=== PATIENT | female | born 1945 | race African-American/Black ===

== ENCOUNTER 2018-07-04 14:30 | Inpatient (IN) ==
[2018-07-04] MEDS ORDERED: ACETAMINOPHEN 325 MG TABLET PO PRN (20:29)
[2018-07-04] MEDS ORDERED: ZALEPLON 5 MG CAPSULE PO PRN (20:29)
[2018-07-04] MEDS ORDERED: ONDANSETRON 4 MG/2 ML VIAL IV PRN (20:29)
[2018-07-04] MEDS ORDERED: DOCUSATE SODIUM 100 MG CAPSULE PO PRN (20:29)
[2018-07-04] MEDS ORDERED: ALBUTEROL/IPRATROPIUM 3 ML NEB RESP TX PRN (20:33)
[2018-07-04 21:22] LABS: Basophils % 0.3 % (0.0-0.8); Eosinophils # 0.1 10*3/uL (0.0-0.87); Eosinophils % 1.1 % (0.00-10.9); Hemoglobin 8.5 GM/DL (12.0-16.0); Immature Granulocytes % 0.3 %; Immature Granulocytes Absolute 0.03 #; Lymphocytes # 0.6 10*3/uL (1.4-4.0); Lymphocytes % 5.7 % (21.3-54.2); Mean Corpuscular HGB Conc 29.3 GM/DL (32-36); Mean Corpuscular Volume 80.3 FL (87-102); Mean Platelet Volume 11.6 FL (9.6-12.0); Monocytes % 8.6 % (1.7-12.7); Platelet Count 193 T/CUMM (130-400); Red Blood Count 3.61 MC/CUMM (3.8-5.5); Red Cell Distribution Width 15.8 % (9.3-17.3); White Blood Count 9.7 T/CUMM (4-12)
[2018-07-04 21:38] LABS: CKMB % 1.8 %; Troponin I 0.066 NG/ML (0.00-0.045)
[2018-07-04 21:44] LABS: Albumin 3.7 G/DL (3.4-5.0); Bilirubin,Total 0.5 MG/DL (0.2-1.0); Calcium 8.6 MG/DL (8.5-10.1); Osmolality,Calculated 305.7 MOS/KG (273-304); Thyroid Stimulating Hormone 2.58 uIU/ml (0.358-3.74)
[2018-07-04] MEDS: ENOXAPARIN 80 MG/0.8 ML SYRINGE SUBCUT SCH (22:55)
[2018-07-04] MEDS: CARVEDILOL 25 MG TABLET PO SCH (22:55)
[2018-07-04] MEDS: ATORVASTATIN 20 MG TABLET PO SCH (22:55)
[2018-07-04] MEDS: SACUBITRIL/VALSARTAN 49-51 MG TABLET PO SCH (22:55)
[2018-07-04] MEDS: methylPREDNISolone SOD SUC 40 MG/1 ML VIAL IV SCH (22:56)
[2018-07-04] MEDS: ALBUTEROL/IPRATROPIUM 3 ML NEB RESP TX SCH (23:08)
[2018-07-05] MEDS: ALBUTEROL/IPRATROPIUM 3 ML NEB RESP TX SCH ×5 (03:11→20:00)
[2018-07-05] MEDS: methylPREDNISolone SOD SUC 40 MG/1 ML VIAL IV SCH ×4 (03:45→22:03)
[2018-07-05 06:22] LABS: Risk Ratio 1.93; VLDL CHOLESTEROL 7.4 MG/DL
[2018-07-05 06:29] LABS: Troponin I 0.103 NG/ML (0.00-0.045)
[2018-07-05 06:56] LABS: Amorphous Crystals,Urine Occasional /HPF (Few); Apearance,Urine CLOUDY (Clear); Bacteria,Urine Many /HPF (Few); Bilirubin,Urine Negative (Negative); Blood, Urine Small mg/dL (Negative); Glucose,Urine (UA) Negative (Negative); Hyaline Casts,Urine 6 /LPF (0-3); Ketones,Urine Negative (Negative); Nitrite,Urine Negative (Negative); Protein,Urine 30 MG/DL; RBC,Urine 2 /HPF (0-4); Squamous Epithelial Cell,Urine Moderate /HPF (0-10); Urine Color Yellow (Yellow); Urine Urobilinogen < 2.0 EU/DL (0.2-1.0); WBC,Urine 6 /HPF (0-6)
[2018-07-05] MEDS ORDERED: DEXTROSE 50% 25 GM/50 ML SYRINGE IV PRN (08:45)
[2018-07-05] MEDS ORDERED: GLUCAGON 1 MG VIAL IM PRN (08:45)
[2018-07-05] MEDS ORDERED: LEVOFLOXACIN INJ 500 MG in PREMIX 1 EACH IV ONE (09:00)
[2018-07-05] MEDS: CARVEDILOL 25 MG TABLET PO SCH ×2 (09:51→16:22)
[2018-07-05] MEDS: ENOXAPARIN 80 MG/0.8 ML SYRINGE SUBCUT SCH ×2 (09:51→22:04)
[2018-07-05] MEDS: SACUBITRIL/VALSARTAN 49-51 MG TABLET PO SCH ×2 (09:51→22:03)
[2018-07-05] MEDS: ASPIRIN EC 81 MG TABLET PO SCH (09:51)
[2018-07-05] MEDS: PANTOPRAZOLE 40 MG TABLET PO SCH (09:51)
[2018-07-05] MEDS: FERROUS SULFATE 325 MG TABLET PO SCH (09:51)
[2018-07-05] MEDS: FUROSEMIDE 40 MG/4 ML VIAL IV SCH ×2 (09:52→16:21)
[2018-07-05] MEDS: INSULIN REGULAR 100 UNIT/ML SUBCUT SCH ×2 (13:17→18:43)
[2018-07-05] MEDS ORDERED: DEXTROSE 50% 25 GM/50 ML VIAL IV PRN ×2 (13:30→21:31)
[2018-07-05] MEDS: ATORVASTATIN 20 MG TABLET PO SCH (22:04)
[2018-07-06] MEDS: INSULIN REGULAR 100 UNIT/ML SUBCUT SCH ×6 (01:50→23:58)
[2018-07-06] MEDS: ALBUTEROL/IPRATROPIUM 3 ML NEB RESP TX SCH ×7 (03:50→23:05)
[2018-07-06] MEDS: methylPREDNISolone SOD SUC 40 MG/1 ML VIAL IV SCH ×4 (04:23→20:43)
[2018-07-06 08:39] LABS: Calcium 8.7 MG/DL (8.5-10.1); Osmolality,Calculated 306.7 MOS/KG (273-304)
[2018-07-06] MEDS: FUROSEMIDE 40 MG/4 ML VIAL IV SCH ×2 (08:49→16:40)
[2018-07-06] MEDS: ENOXAPARIN 80 MG/0.8 ML SYRINGE SUBCUT SCH (08:49)
[2018-07-06] MEDS: LEVOFLOXACIN INJ 250 MG in PREMIX 1 EACH IV SCH (08:50)
[2018-07-06] MEDS: FERROUS SULFATE 325 MG TABLET PO SCH (08:51)
[2018-07-06] MEDS: ASPIRIN EC 81 MG TABLET PO SCH (08:51)
[2018-07-06] MEDS: hydrALAZINE 10 MG TABLET PO SCH ×3 (08:51→20:42)
[2018-07-06] MEDS: ISOSORBIDE DINITRATE 20 MG TABLET PO SCH ×3 (08:51→20:43)
[2018-07-06] MEDS: SACUBITRIL/VALSARTAN 49-51 MG TABLET PO SCH ×2 (08:51→20:42)
[2018-07-06] MEDS: PANTOPRAZOLE 40 MG TABLET PO SCH (08:51)
[2018-07-06] MEDS: CARVEDILOL 25 MG TABLET PO SCH ×2 (08:51→16:40)
[2018-07-06 12:30] LABS: CKMB % 2.4 %
[2018-07-06 12:32] LABS: % Iron Saturation 21.3 % (18-50)
[2018-07-06 12:33] LABS: Troponin I 6.18 NG/ML (0.00-0.045)
[2018-07-06] MEDS: ATORVASTATIN 20 MG TABLET PO SCH (20:42)
[2018-07-07] MEDS: ALBUTEROL/IPRATROPIUM 3 ML NEB RESP TX SCH ×5 (03:14→20:01)
[2018-07-07] MEDS: methylPREDNISolone SOD SUC 40 MG/1 ML VIAL IV SCH ×4 (03:52→22:27)
[2018-07-07] MEDS: INSULIN REGULAR 100 UNIT/ML SUBCUT SCH ×3 (05:12→18:13)
[2018-07-07 05:32] LABS: Basophils % 0.1 % (0.0-0.8); Hematocrit 25.7 VOL% (35.7-47.0); Hemoglobin 7.7 GM/DL (12.0-16.0); Immature Granulocytes % 1.1 %; Immature Granulocytes Absolute 0.15 #; Lymphocytes # 0.3 10*3/uL (1.4-4.0); Lymphocytes % 2.4 % (21.3-54.2); Mean Corpuscular Volume 78.1 FL (87-102); Monocytes % 4.5 % (1.7-12.7); NRBC # 0.02 10*3/uL; Neutrophils % 91.9 % (38.7-73.9); Platelet Count 193 T/CUMM (130-400); Red Blood Count 3.29 MC/CUMM (3.8-5.5); Red Cell Distribution Width 15.4 % (9.3-17.3); White Blood Count 13.9 T/CUMM (4-12)
[2018-07-07 05:54] LABS: Calcium 8.4 MG/DL (8.5-10.1); Osmolality,Calculated 312.8 MOS/KG (273-304)
[2018-07-07 05:57] LABS: Lymphocytes 3 % (20-55); Segmented Neutrophils 93 % (50-85); Total Cells Counted 100
[2018-07-07 05:58] LABS: Acanthocytes Few; Anisocytosis 2+; Hypochromasia 1+; Macrocytosis Slight; Microcytosis 1+; Ovalocytes 1+; Polychromasia Slight; Stomatocytes Slight; Target Cells Slight
[2018-07-07 05:59] LABS: Platelet Estimate Adequate
[2018-07-07] MEDS: FUROSEMIDE 40 MG/4 ML VIAL IV SCH (09:13)
[2018-07-07] MEDS: ASPIRIN EC 81 MG TABLET PO SCH (09:15)
[2018-07-07] MEDS: LEVOFLOXACIN INJ 250 MG in PREMIX 1 EACH IV SCH (09:15)
[2018-07-07] MEDS: FERROUS SULFATE 325 MG TABLET PO SCH (09:15)
[2018-07-07] MEDS: SACUBITRIL/VALSARTAN 49-51 MG TABLET PO SCH (09:15)
[2018-07-07] MEDS: CARVEDILOL 25 MG TABLET PO SCH ×2 (09:15→16:26)
[2018-07-07] MEDS: ISOSORBIDE DINITRATE 20 MG TABLET PO SCH ×3 (09:15→22:25)
[2018-07-07] MEDS: hydrALAZINE 10 MG TABLET PO SCH ×3 (09:16→22:25)
[2018-07-07] MEDS: PANTOPRAZOLE 40 MG TABLET PO SCH (09:16)
[2018-07-07] MEDS: ENOXAPARIN 30 MG/0.3 ML SYRINGE SUBCUT SCH (09:19)
[2018-07-07] MEDS ORDERED: SODIUM CHLORIDE 0.9% 1,000 ML IV PRN ×2 (12:39→15:04)
[2018-07-07] MEDS ORDERED: FUROSEMIDE 40 MG/4 ML VIAL IV ONE ×2 (12:42→20:30)
[2018-07-07 13:03] LABS: % Iron Saturation 27.6 % (18-50); Ferritin 123.7 ng/ml (8-252)
[2018-07-07] MEDS: ATORVASTATIN 20 MG TABLET PO SCH (22:25)
[2018-07-08] MEDS: INSULIN REGULAR 100 UNIT/ML SUBCUT SCH ×4 (00:02→18:06)
[2018-07-08] MEDS: ALBUTEROL/IPRATROPIUM 3 ML NEB RESP TX SCH ×7 (00:15→23:22)
[2018-07-08] MEDS: methylPREDNISolone SOD SUC 40 MG/1 ML VIAL IV SCH ×4 (04:02→22:36)
[2018-07-08 04:58] LABS: Basophils % 0.1 % (0.0-0.8); Hemoglobin 10.7 GM/DL (12.0-16.0); Immature Granulocytes % 1.1 %; Immature Granulocytes Absolute 0.13 #; Lymphocytes # 0.3 10*3/uL (1.4-4.0); Lymphocytes % 2.9 % (21.3-54.2); Mean Corpuscular HGB Conc 31.5 GM/DL (32-36); Mean Corpuscular Volume 79.1 FL (87-102); Mean Platelet Volume 12.7 FL (9.6-12.0); Monocytes % 3.1 % (1.7-12.7); NRBC # 0.02 10*3/uL; Neutrophils % 92.8 % (38.7-73.9); Platelet Count 200 T/CUMM (130-400); White Blood Count 11.9 T/CUMM (4-12)
[2018-07-08 05:18] LABS: Calcium 8.7 MG/DL (8.5-10.1); Osmolality,Calculated 307.1 MOS/KG (273-304)
[2018-07-08 06:18] LABS: Band Neutrophils 2 % (0-10); Lymphocytes 3 % (20-55); Myelocytes 1 %; Segmented Neutrophils 92 % (50-85); Total Cells Counted 100
[2018-07-08 06:19] LABS: Anisocytosis 1+; Ovalocytes 1+; Platelet Estimate Adequate
[2018-07-08] MEDS: ENOXAPARIN 30 MG/0.3 ML SYRINGE SUBCUT SCH (09:02)
[2018-07-08] MEDS: ASPIRIN EC 81 MG TABLET PO SCH (09:03)
[2018-07-08] MEDS: FERROUS SULFATE 325 MG TABLET PO SCH (09:03)
[2018-07-08] MEDS: PANTOPRAZOLE 40 MG TABLET PO SCH (09:03)
[2018-07-08] MEDS: LEVOFLOXACIN 250 MG TABLET PO SCH (09:03)
[2018-07-08] MEDS: ISOSORBIDE DINITRATE 20 MG TABLET PO SCH ×3 (09:03→22:36)
[2018-07-08] MEDS: hydrALAZINE 10 MG TABLET PO SCH ×3 (09:03→22:36)
[2018-07-08] MEDS: CARVEDILOL 25 MG TABLET PO SCH ×2 (09:03→16:16)
[2018-07-08] MEDS: ATORVASTATIN 20 MG TABLET PO SCH (22:36)
[2018-07-09] MEDS: INSULIN REGULAR 100 UNIT/ML SUBCUT SCH ×3 (01:05→14:15)
[2018-07-09] MEDS: ALBUTEROL/IPRATROPIUM 3 ML NEB RESP TX SCH ×3 (02:27→11:22)
[2018-07-09] MEDS: methylPREDNISolone SOD SUC 40 MG/1 ML VIAL IV SCH ×2 (03:54→10:09)
[2018-07-09 04:45] LABS: Basophils % 0.1 % (0.0-0.8); Hemoglobin 11.6 GM/DL (12.0-16.0); Immature Granulocytes % 1.1 %; Immature Granulocytes Absolute 0.14 #; Lymphocytes # 0.3 10*3/uL (1.4-4.0); Lymphocytes % 2.7 % (21.3-54.2); Mean Corpuscular HGB Conc 31.4 GM/DL (32-36); Mean Corpuscular Volume 79.4 FL (87-102); Mean Platelet Volume 12.5 FL (9.6-12.0); Monocytes % 4.9 % (1.7-12.7); NRBC # 0.02 10*3/uL; Neutrophils % 91.2 % (38.7-73.9); Platelet Count 201 T/CUMM (130-400); Red Blood Count 4.66 MC/CUMM (3.8-5.5); White Blood Count 12.4 T/CUMM (4-12)
[2018-07-09 05:14] LABS: Calcium 8.4 MG/DL (8.5-10.1); Calcium 8.5 MG/DL (8.5-10.1); Osmolality,Calculated 314.8 MOS/KG (273-304)
[2018-07-09 06:19] LABS: Hypochromasia 1+; Lymphocytes 1 % (20-55); Ovalocytes Slight; Platelet Estimate Adequate; Segmented Neutrophils 97 % (50-85); Total Cells Counted 100
[2018-07-09] MEDS: ENOXAPARIN 30 MG/0.3 ML SYRINGE SUBCUT SCH (10:03)
[2018-07-09] MEDS: hydrALAZINE 10 MG TABLET PO SCH ×2 (10:04→14:15)
[2018-07-09] MEDS: CARVEDILOL 25 MG TABLET PO SCH (10:04)
[2018-07-09] MEDS: LEVOFLOXACIN 250 MG TABLET PO SCH (10:04)
[2018-07-09] MEDS: ASPIRIN EC 81 MG TABLET PO SCH (10:04)
[2018-07-09] MEDS: PANTOPRAZOLE 40 MG TABLET PO SCH (10:04)
[2018-07-09] MEDS: FERROUS SULFATE 325 MG TABLET PO SCH (10:04)
[2018-07-09] MEDS: ISOSORBIDE DINITRATE 20 MG TABLET PO SCH ×2 (10:04→14:15)
[2018-07-09 11:45] VITALS: BP 116/67
== END 2018-07-09 14:30 | disposition home health service (06) | DRG 280 ==
LOC: N.TELEN → SUATTDRO 18:02
PROVIDERS: ADMIT Internal Medicine; ATTEND Internal Medicine